=== PATIENT | male | born 1930 | race Caucasian/White ===

== ENCOUNTER 2016-10-11 12:08 | Emergency (ER) | payer MEDICARE, MEDICAID ==
[2016-10-11] MEDS ORDERED: Sodium Chloride 0.9% 10 ML Syringe FLUSH PRN (12:18)
[2016-10-11] MEDS ORDERED: Sodium Chloride 0.9% 1,000 ML IV SCH (12:30)
[2016-10-11 13:11] LABS: CHLORIDE,CL 107 mmol/L (98-107); SODIUM,NA 141 mmol/L (136-145)
--- NOTE | 2016-10-11 13:20 | EDM.PDOC ---
ED HPI GENERAL MEDICAL PROBLEM - General Chief Complaint: General Stated Complaint: low blood pression; confusion; lethargy Time Seen by Provider: 10/11/16 12:16 Source of Information: Reports: EMS notes reviewed, Family, retirement records , RN, RN notes reviewed History Limitations: Reports: No limitations - History of Present Illness INITIAL COMMENTS - FREE TEXT/NARRATIVE: Patient is brought to the emergency room at [facility] via ambulance for low blood pressure, confusion, lethargy. The patient is a resident at the [facility]. According to the halfway staff after the patient ate breakfast this morning she started having the symptoms. The patient does have a history of vascular dementia. According to the halfway staff the patient is normally cognizant and conversive. No recent falls. Onset: today Onset Date: 10/11/16 Duration: Waxing/waning - Related Data Allergies Allergy/AdvReac Type Severity Reaction Status Date / Time codeine Allergy Vomiting Verified 10/11/16 12:27 Home Meds: Home Meds ALPRAZolam [Alprazolam] 0.25 mg PO TID 11/11/13 [History] Atenolol [Tenormin] 50 mg PO DAILY 11/11/13 [History] Cholecalciferol (Vitamin D3) [Vitamin D3] 2,000 unit PO DAILY 11/11/13 [History] Gabapentin 600 mg PO BID 11/11/13 [History] Isosorbide Mononitrate [Isosorbide Mononitrate ER] 30 mg PO DAILY 11/11/13 [ History] Lisinopril [Prinivil] 40 mg PO DAILY 11/11/13 [History] Omeprazole 20 mg PO DAILY 11/11/13 [History] atorvaSTATin [Lipitor] 80 mg PO BEDTIME 11/11/13 [History] Acetaminophen [Tylenol Extra Strength] 500 mg PO ASDIRECTED PRN 05/07/15 [ History] Benzonatate [Tessalon Perle] 100 mg PO TID PRN 05/07/15 [History] Cyanocobalamin (Vitamin B-12) [Vitamin B-12] 1,000 mcg PO DAILY 05/07/15 [ History] Dextran 70/Hypromellose [Artificial Tears] 1 drop EYEBOTH QID 05/07/15 [History] Furosemide [Lasix] 40 mg PO DAILY 05/07/15 [History] Hydrocodone/Acetaminophen [[place] 5-325] 1 tab PO TID 05/07/15 [History] Nortriptyline HCl [Pamelor] 10 mg PO DAILY 05/07/15 [History] Calcium Citrate/Vitamin D3 [Calcium Cit-Vit D 315-200] 1 each PO BID 10/03/16 [ History] Diclofenac Sodium [Voltaren 1% Gel] 1 applic TOP Q6H 10/03/16 [History] Docusate Sodium/Sennosides [Senna Plus] 1 tab PO DAILY PRN 10/03/16 [History] Fluticasone Propionate [Flonase] 0 gm NASBOTH DAILY 10/03/16 [History] Gabapentin [Neurontin] 900 mg PO DAILY 10/03/16 [History] Sertraline [Zoloft] 100 mg PO BEDTIME 10/03/16 [History] Tamsulosin HCl [Flomax] 0.4 mg PO DAILY 10/03/16 [History] Warfarin [Coumadin] 2.5 mg PO DAILY 10/03/16 [History] Warfarin [Coumadin] 5 mg PO DAILY 10/03/16 [History] traZODone 25 mg PO DAILY 10/03/16 [History] Past Medical History HEENT History: Reports: Cataract Cardiovascular History: Reports: Heart Failure, High cholesterol, Hypertension, Other (see below) Other Cardiovascular History: atrial flutter Gastrointestinal History: Reports: Chronic constipation, GERD Musculoskeletal History: Reports: Osteoarthritis Neurological History: Reports: TIA Psychiatric History: Reports: Anxiety, Depression Hematologic History: Reports: B12 deficiency Oncologic (Cancer) History: Reports: Prostate Social & Family History - Tobacco Use Smoking Status *Q: Unknown Ever Smoked Years of Tobacco use: 30 - Alcohol Use Days Per Week of Alcohol Use: 1 Number of Drinks Per Day: 1 Total Drinks Per Week: 1 - Recreational Drug Use Recreational Drug Use: No ED ROS GENERAL - Review of Systems Review Of Systems: See Below Constitutional: Denies: fever, chills, weakness Respiratory: Denies: Shortness of Breath, Cough Cardiovascular: Reports: Blood pressure problem. Denies: Chest pain, Palpitations GI/Abdominal: Denies: Abdominal pain, Nausea, Vomiting Skin: Reports: no symptoms Neurological: Reports: Confusion. Denies: Headache, Numbness, Tingling ED EXAM, GENERAL - Physical Exam Exam: See Below Exam Limited By: No limitations General Appearance: alert, no apparent distress, lethargic Eye Exam: bilateral eye: EOMI, normal inspection, PERRL Head: atraumatic, normocephalic Neck: supple Respiratory/Chest: no respiratory distress, lungs clear, normal breath sounds Cardiovascular: regular rate, rhythm, no edema Peripheral Pulses: 1+: radial (L), radial (R) GI/Abdominal: normal bowel sounds, soft, non tender Neurological: confused, disoriented, slow to respond, memory loss remote events Skin Exam: Warm, Dry, Intact, Normal color, No rash EKG INTERPRETATION EKG Date: 10/11/16 Time: 12:57 Rhythm: other (AV-Paced) Rate (beats/min): 61 [place]: normal P-wave: absent QRS: normal ST-T: normal QT: normal AK/PQ Interval: Abscent due to having a dual chamber pacer Comparison: NA - no prior EKG EKG Interpretation Comments: 1. AV Paced Course - Vital Signs Last Recorded V/S: Last Vital Signs Temp 35.8 C 10/11/16 12:08 Pulse 60 10/11/16 13:01 Resp 14 10/11/16 13:01 BP 89/45 L 10/11/16 13:01 Pulse Ox 93 L 10/11/16 13:01 - Orders/Labs/Meds Orders: Active Orders 24 hr Category Date Time Status EKG 12 Lead [EKG Documentation Completion] [RC] STAT Care 10/11/16 12:19 Active Chest 1V Frontal [CR] Stat Exams 10/11/16 12:17 Taken Head wo Cont [CT] Stat Exams 10/11/16 13:08 Taken Sodium Chloride 0.9% [Normal Saline] 1,000 ml Med 10/11/16 12:30 Active IV ASDIRECTED Sodium Chloride 0.9% [Saline Flush] Med 10/11/16 12:18 Active 10 ml FLUSH ASDIRECTED PRN Peripheral IV Insertion Adult [OM.PC] Routine Oth 10/11/16 12:18 Ordered Medication Orders Sodium Chloride (Normal Saline) 1,000 mls @ 999 mls/hr IV ASDIRECTED ISMA Sodium Chloride (Saline Flush) 10 ml FLUSH ASDIRECTED PRN PRN Reason: Keep Vein Open Labs: Laboratory Tests 10/11/16 10/11/16 10/11/16 Range/Units 12:30 12:30 12:30 WBC 7.9 (4.0-10.0) x10^3/uL RBC 3.53 L (4.5-6.0) x10^6/uL Hgb 10.7 L (14.0-18.0) g/dL Hct 34.6 L (40.0-52.0) % MCV 98.0 H (78.0-93.0) fL MCH 30.3 (26.0-32.0) pg MCHC 30.9 L (32.0-36.0) g/dL RDW Coeff of Yaz 15.1 H (10.0-15.0) % Plt Count 178 (130-400) x10^3/uL Neut % (Auto) 71.5 (50.0-80.0) % Lymph % (Auto) 15.3 L (25.0-50.0) % [place] % (Auto) 11.3 H (2.0-11.0) % Eos % (Auto) 1.8 (0.0-4.0) % Baso % (Auto) 0.1 L (0.2-1.2) % POC ABG pH (7.35-7.45) POC ABG pCO2 (35-45) mmHG POC ABG pO2 (80-105) mmHG POC ABG HCO3 (22-26) mmol/L POC ABG Total CO2 (23-27) mmol/L POC ABG O2 Sat (95-98) % POC ABG Base Excess (-2-3) mmol/L POC FiO2 Sodium 141 (136-145) mmol/L Potassium 4.5 (3.5-5.1) mmol/L Chloride 107 (98-107) mmol/L Carbon Dioxide 29 (21-32) mmol/L BUN 36 H (7-18) mg/dL Creatinine 1.9 H (0.70-1.30) mg/dL Est Cr Clr Drug Dosing TNP Estimated GFR (MDRD) 34 Glucose 90 (74-106) mg/dL Lactic Acid 1.0 (0.4-2.0) mmol/L Calcium 8.3 L (8.5-10.1) mg/dL Corrected Calcium 9.02 (8.5-10.1) mg/dL Phosphorus 4.0 (2.6-4.7) mg/dL Magnesium 2.3 (1.8-2.4) mg/dL Total Bilirubin 0.4 (0.2-1.0) mg/dL AST 14 L (15-37) U/L ALT 14 L (16-63) U/L Alkaline Phosphatase 45 L (46-116) U/L Creatine Kinase 43 (39-308) U/L Creatine Kinase Index Cancelled CK-MB (CK-2) Cancelled POC Troponin I (0.00-0.08) ng/mL C-Reactive Protein < 0.2 (<=0.9) mg/dL Total Protein 6.0 L (6.4-8.2) g/dL Albumin 3.1 L (3.4-5.0) g/dL Globulin 2.9 Albumin/Globulin Ratio 1.07 POC Result Comm Urine Color (YELLOW) Urine Appearance (CLEAR) Urine pH (5.0-8.0) Ur Specific [place] Urine Protein (NEGATIVE) mg/dL Urine Glucose (UA) (NEGATIVE) mg/dL Urine Ketones (NEGATIVE) mg/dL Urine Occult Blood (NEGATIVE) Urine Nitrite (NEGATIVE) Urine Bilirubin (NEGATIVE) Urine Urobilinogen (0.2) EU/dL Ur Leukocyte Esterase (NEGATIVE) Urine RBC (NOT SEEN) /HPF Urine WBC (NOT SEEN) /HPF Ur Squamous Epith Cells (NEGATIVE) /HPF Ur Renal Epithelial Cell (NEGATIVE) /HPF Amorphous Sediment Urine Bacteria (NEGATIVE) /HPF Urine Mucus (NEGATIVE) /LPF 10/11/16 10/11/16 10/11/16 Range/Units 12:35 12:59 14:13 WBC (4.0-10.0) x10^3/uL RBC (4.5-6.0) x10^6/uL Hgb (14.0-18.0) g/dL Hct (40.0-52.0) % MCV (78.0-93.0) fL MCH (26.0-32.0) pg MCHC (32.0-36.0) g/dL RDW Coeff of Yaz (10.0-15.0) % Plt Count (130-400) x10^3/uL Neut % (Auto) (50.0-80.0) % Lymph % (Auto) (25.0-50.0) % [place] % (Auto) (2.0-11.0) % Eos % (Auto) (0.0-4.0) % Baso % (Auto) (0.2-1.2) % POC ABG pH 7.277 L* (7.35-7.45) POC ABG pCO2 48 H (35-45) mmHG POC ABG pO2 72 L (80-105) mmHG POC ABG HCO3 22 (22-26) mmol/L POC ABG Total CO2 24 (23-27) mmol/L POC ABG O2 Sat 92 L (95-98) % POC ABG Base Excess -5 L (-2-3) mmol/L POC FiO2 0.21 Sodium (136-145) mmol/L Potassium (3.5-5.1) mmol/L Chloride (98-107) mmol/L Carbon Dioxide (21-32) mmol/L BUN (7-18) mg/dL Creatinine (0.70-1.30) mg/dL Est Cr Clr Drug Dosing Estimated GFR (MDRD) Glucose (74-106) mg/dL Lactic Acid (0.4-2.0) mmol/L Calcium (8.5-10.1) mg/dL Corrected Calcium (8.5-10.1) mg/dL Phosphorus (2.6-4.7) mg/dL Magnesium (1.8-2.4) mg/dL Total Bilirubin (0.2-1.0) mg/dL AST (15-37) U/L ALT (16-63) U/L Alkaline Phosphatase (46-116) U/L Creatine Kinase (39-308) U/L Creatine Kinase Index CK-MB (CK-2) POC Troponin I 0.01 (0.00-0.08) ng/mL C-Reactive Protein (<=0.9) mg/dL Total Protein (6.4-8.2) g/dL Albumin (3.4-5.0) g/dL Globulin Albumin/Globulin Ratio POC Result Comm Called critical res Urine Color Yellow (YELLOW) Urine Appearance Cloudy H (CLEAR) Urine pH 7.0 (5.0-8.0) Ur Specific [place] 1.015 Urine Protein Negative (NEGATIVE) mg/dL Urine Glucose (UA) Negative (NEGATIVE) mg/dL Urine Ketones Negative (NEGATIVE) mg/dL Urine Occult Blood Negative (NEGATIVE) Urine Nitrite Negative (NEGATIVE) Urine Bilirubin Negative (NEGATIVE) Urine Urobilinogen 0.2 (0.2) EU/dL Ur Leukocyte Esterase Negative (NEGATIVE) Urine RBC 0-5 (NOT SEEN) /HPF Urine WBC 0-5 (NOT SEEN) /HPF Ur Squamous Epith Cells Rare (NEGATIVE) /HPF Ur Renal Epithelial Cell Rare H (NEGATIVE) /HPF Amorphous Sediment Moderate Urine Bacteria Not seen (NEGATIVE) /HPF Urine Mucus Rare H (NEGATIVE) /LPF Meds: Medications Generic Name Dose Route Start Last Admin Trade Name Freq PRN Reason Stop Dose Admin Sodium Chloride 1,000 mls @ 999 mls/hr 10/11/16 12:30 Normal Saline IV ASDIRECTED ISMA Sodium Chloride 10 ml 10/11/16 12:18 Saline Flush FLUSH ASDIRECTED PRN Keep Vein Open - Radiology Interpretation Free Text/Narrative:: Chest xray: hypoventilatory changes; borderline cardiomegaly without evidence of CHF CT Results Date: 10/11/16 CT Results Time: 14:25 (No acute findings; stable atrophy and chronic small vessel ischemic changes) Departure - Departure Time of Disposition: 14:50 Disposition: Home, Self-Care 01 Clinical Impression: Lethargy, Dehydration Instructions: Rehydration, Adult Referrals: Breanne Cano DO [Primary Care Provider] - Forms: ED Department Discharge Additional Instructions: 1. Stay well hydrated and rest 2. Will return to [facility] 3. See your Primary as symptoms warrant - Problem List Review Problem List Initiated/Reviewed/Updated: Yes - My Orders Last 24 Hours: My Active Orders 10/11/16 12:17 Chest 1V Frontal [CR] Stat 10/11/16 12:18 Sodium Chloride 0.9% [Saline Flush] 10 ml FLUSH ASDIRECTED PRN Peripheral IV Insertion Adult [OM.PC] Routine 10/11/16 12:19 EKG 12 Lead [EKG Documentation Completion] [RC] STAT 10/11/16 12:30 Sodium Chloride 0.9% [Normal Saline] 1,000 ml IV ASDIRECTED 10/11/16 13:08 Head wo Cont [CT] Stat - Assessment/Plan Last 24 Hours: My Active Orders 10/11/16 12:17 Chest 1V Frontal [CR] Stat 04/08/17 12:18 Sodium Chloride 0.9% [Saline Flush] 10 ml FLUSH ASDIRECTED PRN Peripheral IV Insertion Adult [OM.PC] Routine 10/11/16 12:19 EKG 12 Lead [EKG Documentation Completion] [RC] STAT 10/11/16 12:30 Sodium Chloride 0.9% [Normal Saline] 1,000 ml IV ASDIRECTED 10/11/16 13:08 Head wo Cont [CT] Stat Plan: Labs, CT results, and assessment finding discussed with family at bedside. Agreed to return back to the halfway and follow up with PCP as symptoms warrant
[2016-10-11 15:02] VITALS: BP 90/60
== END 2016-10-11 15:05 | disposition home or self-care (01) ==
LOC: VM.ED 12:08
DX: E86.0 Dehydration (principal); I11.0 Hypertensive heart disease with heart failure; I50.9 Heart failure, unspecified; E78.00 Pure hypercholesterolemia, unspecified; K21.9 Gastro-esophageal reflux disease without esophagitis; M19.90 Unspecified osteoarthritis, unspecified site; F41.9 Anxiety disorder, unspecified; F32.9 Major depressive disorder, single episode, unspecified; Z86.73 Personal history of transient ischemic attack (TIA), and cerebral infarction without residual deficits; Z79.899 Other long term (current) drug therapy; Z79.01 Long term (current) use of anticoagulants; Z88.5 Allergy status to narcotic agent
CPT/HCPCS: 36415; 36600; 70450; 71010; 80053; 81001; 82550; 82803; 83605; 83735; 84100; 84484; 85025; 86140; 93005; 99284-GF; 99285

== ENCOUNTER 2018-02-19 18:05 | Emergency (ER) | payer MEDICARE, MEDICAID ==
[2018-02-19] MEDS ORDERED: Sodium Chloride 0.9% 10 ML Syringe FLUSH PRN (18:22)
--- NOTE | 2018-02-19 18:28 | EDM.PDOC ---
ED HPI GENERAL MEDICAL PROBLEM - General Chief Complaint: Chest Pain Stated Complaint: chest tightness Time Seen by Provider: 02/19/18 18:15 Source of Information: Reports: Patient History Limitations: Reports: No Limitations - History of Present Illness INITIAL COMMENTS - FREE TEXT/NARRATIVE: Patient comes into the emergency department complaining of chest tenderness. He states of the chest tightness has been going on and off for approximately a month. He states that it has progressed the pain started yesterday and has been consistent since then. Patient does have a history of myocardial ischemia, a pacemaker implantation, and a CABG completed greater than 5 years ago. The pt is very vague with his symptoms but states it is a pressure that has been on and off for over 2 months but this morning it has been more consistent with right ear pain describes it as a burning sensation. No SOB, dizziness, lightheadedness, abdominal pain, nausea vomiting, or urinary symptoms. Onset: Sudden Severity: Mild Improves with: Reports: None Worsens with: Reports: None Associated Symptoms: Denies: Confusion, Chest Pain, Cough, cough w sputum, Diaphoresis, Fever/Chills, Headaches, Loss of Appetite, Nausea/Vomiting, Rash, Seizure, Shortness of Breath, Weakness Headache Pain Score (Numeric/FACES): 4 - Related Data Allergies Allergy/AdvReac Type Severity Reaction Status Date / Time codeine Allergy Vomiting Verified 02/19/18 19:04 Home Meds: Home Meds ALPRAZolam [Alprazolam] 0.25 mg PO TID 11/11/13 [History] Atenolol [Tenormin] 50 mg PO DAILY 11/11/13 [History] Cholecalciferol (Vitamin D3) [Vitamin D3] 2,000 unit PO DAILY 11/11/13 [History] Gabapentin 600 mg PO BID 11/11/13 [History] Isosorbide Mononitrate [Isosorbide Mononitrate ER] 30 mg PO DAILY 11/11/13 [ History] Lisinopril [Prinivil] 40 mg PO DAILY 11/11/13 [History] Omeprazole 20 mg PO DAILY 11/11/13 [History] atorvaSTATin [Lipitor] 80 mg PO BEDTIME 11/11/13 [History] Acetaminophen [Tylenol Extra Strength] 500 mg PO ASDIRECTED PRN 05/07/15 [ History] Benzonatate [Tessalon Perle] 100 mg PO TID PRN 05/07/15 [History] Cyanocobalamin (Vitamin B-12) [Vitamin B-12] 1,000 mcg PO DAILY 05/07/15 [ History] Dextran 70/Hypromellose [Artificial Tears] 1 drop EYEBOTH QID 05/07/15 [History] Furosemide [Lasix] 40 mg PO DAILY 05/07/15 [History] Hydrocodone/Acetaminophen [[place] 5-325] 1 tab PO TID 05/07/15 [History] Nortriptyline HCl [Pamelor] 10 mg PO DAILY 05/07/15 [History] Calcium Citrate/Vitamin D3 [Calcium Cit-Vit D 315-200] 1 each PO BID 10/03/16 [ History] Diclofenac Sodium [Voltaren 1% Gel] 1 applic TOP Q6H 10/03/16 [History] Docusate Sodium/Sennosides [Senna Plus] 1 tab PO DAILY PRN 10/03/16 [History] Fluticasone Propionate [Flonase] 0 gm NASBOTH DAILY 10/03/16 [History] Gabapentin [Neurontin] 900 mg PO DAILY 10/03/16 [History] Sertraline [Zoloft] 100 mg PO BEDTIME 10/03/16 [History] Tamsulosin HCl [Flomax] 0.4 mg PO DAILY 10/03/16 [History] Warfarin [Coumadin] 2.5 mg PO DAILY 10/03/16 [History] Warfarin [Coumadin] 5 mg PO DAILY 10/03/16 [History] traZODone 25 mg PO DAILY 10/03/16 [History] Past Medical History HEENT History: Reports: Cataract Cardiovascular History: Reports: Heart Failure, High Cholesterol, Hypertension, Other (See Below) Other Cardiovascular History: atrial flutter Gastrointestinal History: Reports: Chronic Constipation, GERD Musculoskeletal History: Reports: Osteoarthritis Neurological History: Reports: TIA Psychiatric History: Reports: Anxiety, Depression Hematologic History: Reports: B12 Deficiency Oncologic (Cancer) History: Reports: Prostate ED ROS GENERAL - Review of Systems Review Of Systems: See Below Constitutional: Reports: No Symptoms HEENT: Reports: No Symptoms Respiratory: Denies: Shortness of Breath Cardiovascular: Reports: Chest Pain. Denies: Dyspnea on Exertion, Edema, Palpitations, Syncope GI/Abdominal: Reports: No Symptoms : Reports: No Symptoms Musculoskeletal: Reports: No Symptoms Skin: Reports: No Symptoms Neurological: Reports: No Symptoms Psychiatric: Reports: No Symptoms Hematologic/Lymphatic: Reports: No Symptoms Immunologic: Reports: No Symptoms ED EXAM, GENERAL - Physical Exam Exam: See Below Exam Limited By: No Limitations General Appearance: Alert, WD/WN, No Apparent Distress Eye Exam: Bilateral Eye: EOMI, PERRL Neck: Normal Inspection, Supple, Non-Tender, Full Range of Motion Respiratory/Chest: No Respiratory Distress, Lungs Clear, Normal Breath Sounds, No Accessory Muscle Use, Chest Non-Tender Cardiovascular: Normal Peripheral Pulses, Regular Rate, Rhythm, No Edema Back Exam: Normal Inspection, Full Range of Motion Extremities: Normal Inspection, Normal Range of Motion, Non-Tender, Normal Capillary Refill Neurological: Alert, Oriented Psychiatric: Normal Affect, Normal Mood Skin Exam: Warm, Dry, Intact, Normal Color Course - Vital Signs Last Recorded V/S: Last Vital Signs Temp 36.8 C 02/19/18 18:10 Pulse 63 02/19/18 18:10 Resp 18 02/19/18 18:10 BP 115/63 02/19/18 18:10 Pulse Ox 93 L 02/19/18 18:10 - Orders/Labs/Meds Orders: Active Orders 24 hr Category Date Time Status EKG Documentation Completion [RC] STAT Care 02/19/18 18:22 Active Chest 1V Frontal [CR] Stat Exams 02/19/18 18:23 Taken Sodium Chloride 0.9% [Saline Flush] Med 02/19/18 18:22 Active 10 ml FLUSH ASDIRECTED PRN Peripheral IV Insertion Adult [OM.PC] Stat Oth 02/19/18 18:22 Ordered Medication Orders Sodium Chloride (Saline Flush) 10 ml FLUSH ASDIRECTED PRN PRN Reason: Keep Vein Open Labs: Laboratory Tests 02/19/18 02/19/18 02/19/18 Range/Units 18:35 18:35 18:38 WBC 9.3 (4.0-10.0) x10^3/uL RBC 3.88 L (4.5-6.0) x10^6/uL Hgb 12.3 L D (14.0-18.0) g/dL Hct 36.9 L (40.0-52.0) % MCV 95.1 H (78.0-93.0) fL MCH 31.7 (26.0-32.0) pg MCHC 33.3 (32.0-36.0) g/dL RDW Coeff of Yaz 14.9 (10.0-15.0) % Plt Count 200 (130-400) x10^3/uL Neut % (Auto) 72.7 (50.0-80.0) % Lymph % (Auto) 16.2 L (25.0-50.0) % [place] % (Auto) 9.2 (2.0-11.0) % Eos % (Auto) 1.7 (0.0-4.0) % Baso % (Auto) 0.2 (0.2-1.2) % Sodium 139 (136-145) mmol/L Potassium 4.2 (3.5-5.1) mmol/L Chloride 104 (98-107) mmol/L Carbon Dioxide 25 (21-32) mmol/L Anion Gap 14.2 (10-20) mmol/L BUN 29 H (7-18) mg/dL Creatinine 1.6 H (0.70-1.30) mg/dL Est Cr Clr Drug Dosing TNP Estimated GFR (MDRD) 41 Glucose 115 H (74-106) mg/dL Calcium 9.2 (8.5-10.1) mg/dL Corrected Calcium 9.52 (8.5-10.1) mg/dL Total Bilirubin 0.5 (0.2-1.0) mg/dL AST 78 H (15-37) U/L ALT 60 (16-63) U/L Alkaline Phosphatase 64 (46-116) U/L Creatine Kinase 89 (39-308) U/L POC Troponin I 0.01 (0.00-0.08) ng/mL Total Protein 7.2 (6.4-8.2) g/dL Albumin 3.6 (3.4-5.0) g/dL Globulin 3.6 Albumin/Globulin Ratio 1.00 Meds: Medications Generic Name Dose Route Start Last Admin Trade Name Freq PRN Reason Stop Dose Admin Sodium Chloride 10 ml 02/19/18 18:22 Saline Flush FLUSH ASDIRECTED PRN Keep Vein Open Discontinued Medications Generic Name Dose Route Start Last Admin Trade Name Freq PRN Reason Stop Dose Admin Al Hydroxide/Mg Hydroxide 30 ml 02/19/18 18:39 02/19/18 18:49 Gi Cocktail PO 02/19/18 18:40 30 ml ONETIME ONE Administration Ketorolac Tromethamine 15 mg 02/19/18 19:09 Toradol IVPUSH 02/19/18 19:10 ONETIME ONE Departure - Departure Time of Disposition: 19:50 Disposition: Home, Self-Care 01 Condition: Good Clinical Impression: GERD (gastroesophageal reflux disease) Qualifiers: Esophagitis presence: without esophagitis Qualified Code(s): K21.9 - Gastro- esophageal reflux disease without esophagitis - Discharge Information *PRESCRIPTION DRUG MONITORING PROGRAM REVIEWED*: Not Applicable *COPY OF PRESCRIPTION DRUG MONITORING REPORT IN PATIENT JAMIE: Not Applicable Instructions: Food Choices for Gastroesophageal Reflux Disease, Adult, Heartburn, [id number] Forms: ED Department Discharge Additional Instructions: 1. Activity and diet as tolerated 2. Can take [id number] Tums or Pepto-Bismol for any indigestion 3. Follow-up with primary care provider if he continues to progress to be placed on long-term medication management 4. Return or follow-up if symptoms arise or progress or get worse for that may be cardiac 5. It was advised that you could be admitted under observation for the night to monitor your symptoms and cardiac labs. You have declined at this time but if you change or mind or if symptoms return with no relief of OTC medications please return. 6. Increase water intake 7. Make sure to sit upright at least 30 mins after eating 8. Avoid spicy foods when possible - My Orders Last 24 Hours: My Active Orders 02/19/18 18:22 EKG Documentation Completion [RC] STAT Sodium Chloride 0.9% [Saline Flush] 10 ml FLUSH ASDIRECTED PRN Peripheral IV Insertion Adult [OM.PC] Stat 02/19/18 18:23 Chest 1V Frontal [CR] Stat - Assessment/Plan Last 24 Hours: My Active Orders 02/19/18 18:22 EKG Documentation Completion [RC] STAT Sodium Chloride 0.9% [Saline Flush] 10 ml FLUSH ASDIRECTED PRN Peripheral IV Insertion Adult [OM.PC] Stat 02/19/18 18:23 Chest 1V Frontal [CR] Stat Assessment:: 1. Chest pain burning for up to 2 months Plan: 1. EKG completed in ER 2. Labs completed in ER and results discussed with the pt 3. X-ray completed in ER and results discussed with the pt 4. GI cocktail given in ER 5. Re-assessment after GI cocktail- no pain, resting comfortably, would like to go home, denies and burning, chest pain, SOB, n/v. 6. Did offer the patient to be admitted for observation for further evaluation and treatment regarding possible cardiac workup. Patient declines at this time. He states that he feels better has no longer having any symptoms after taking the GI cocktail. He feels that it was indigestion. He would like to go home. Patient states that he will return immediately to the emergency department if the symptoms do arise again. 7. Education provided regarding activity and diet, follow up, chest pain symptoms, and GERD reduction food.
[2018-02-19] MEDS ORDERED: GI Cocktail Oral Solution 30 ML PO ONE (18:39)
[2018-02-19 19:00] LABS: CHLORIDE,CL 104 mmol/L (98-107); SODIUM,NA 139 mmol/L (136-145)
[2018-02-19 19:01] LABS: ANION GAP 14.2 mmol/L (10-20)
[2018-02-19] MEDS ORDERED: Ketorolac 15 MG/ML SDV IVPUSH ONE (19:09)
[2018-02-19 19:11] VITALS: BP 115/63
== END 2018-02-19 20:05 | disposition home or self-care (01) ==
LOC: VM.ED 18:05
DX: K21.9 Gastro-esophageal reflux disease without esophagitis (principal); I50.9 Heart failure, unspecified; I11.0 Hypertensive heart disease with heart failure; E78.00 Pure hypercholesterolemia, unspecified; F41.9 Anxiety disorder, unspecified; F32.9 Major depressive disorder, single episode, unspecified; Z88.5 Allergy status to narcotic agent; Z79.899 Other long term (current) drug therapy; Z86.73 Personal history of transient ischemic attack (TIA), and cerebral infarction without residual deficits
CPT/HCPCS: 71045; 80053; 82550; 84484; 85025; 93005; 99285; A9270